=== PATIENT | male | born 1950 | race Asian ===

== ENCOUNTER 2018-01-06 02:35 | Emergency (ER) | payer MEDICARE, OTHER ==
[~2018-01-06] VITALS: Ht 172.7 cm; Wt 72.6 kg
[~2018-01-06 02:35] MED LIST: ASPIRIN EC81 MG PO; FINASTERIDE5 MG PO; NKM; TAMSULOSIN HCL0.4 MG PO
[2018-01-06 02:40] VITALS: BP 157/97
--- NOTE | 2018-01-06 02:50 | Emergency Room Report ---
History of Present Illness General Chief Complaint: Pain Source: Patient Present Illness HPI Patient presents by paramedics initial report is regarding left toe pain Patient reports that the pain started last night denies any fevers or chills Denies any trauma Denies any ankle pain denies any knee pain Pain is 8 out of 10 worse with touch Allergies: Coded Allergies: No Known Allergies (Unverified , 02/12/13) Patient History Past Medical History: see triage record Pertinent Family History: none Reviewed Nursing Documentation: PMH: Agreed; PSxH: Agreed Nursing Documentation-PMH Hx Cardiac Problems: Yes Hx Hypertension: Yes Hx Cancer: No Hx Gastrointestinal Problems: Yes Hx Neurological Problems: No Review of Systems All Other Systems: negative except mentioned in HPI Physical Exam Vital Signs Date Time Temp Pulse Resp B/P (MAP) Pulse Ox O2 Delivery O2 Flow Rate FiO2 01/06/18 02:39 97.9 77 16 157/97 93 Room Air Sp02 EP Interpretation: reviewed, normal General Appearance: no apparent distress Head: normocephalic, atraumatic Eyes: bilateral eye PERRL, bilateral eye EOMI ENT: normal pharynx, no angioedema Neck: supple Respiratory: lungs clear Cardiovascular #1: regular rate, rhythm Gastrointestinal: non tender, soft Musculoskeletal: other - Left large toe shows evidence of erythema and swelling , appearance of previous trauma to the toenail Neurologic: alert, oriented x3, responsive Psychiatric: other - Patient appears to have some underlying evidence of paranoia Skin: other - As above Lymphatic: no adenopathy Medical Decision Making Diagnostic Impression: Primary Impression: Ingrowing nail Additional Impression: Ingrowing nail with infection ER Course Multiple differentials including but not limited to paronychia, gout, other infectious pathology entertained The exam and the findings otherwise are consistent with likely ingrown nail, there is also some erythema showing signs of early cellulitis patient initiated on IV antibiotics and will have home antibiotics I did contact [facility] they do have the patient's primary on file The patient also does recall his primary physician will call tomorrow for a same -day appointment with further podiatry follow-up Labs Test 01/06/18 03:03 White Blood Count 7.4 K/UL (4.8-10.8) Red Blood Count 5.37 M/UL (4.70-6.10) Hemoglobin 15.5 G/DL (14.2-18.0) Hematocrit 45.8 % (42.0-52.0) Mean Corpuscular Volume 85 FL (80-99) Mean Corpuscular Hemoglobin 28.8 PG (27.0-31.0) Mean Corpuscular Hemoglobin Concent 33.7 G/DL (32.0-36.0) Red Cell Distribution Width 12.6 % (11.6-14.8) Platelet Count 171 K/UL (150-450) Mean Platelet Volume 8.0 FL (6.5-10.1) Neutrophils (%) (Auto) 63.0 % (45.0-75.0) Lymphocytes (%) (Auto) 24.6 % (20.0-45.0) Monocytes (%) (Auto) 8.2 % (1.0-10.0) Eosinophils (%) (Auto) 2.9 % (0.0-3.0) Basophils (%) (Auto) 1.3 % (0.0-2.0) Urine Color Pale yellow Urine Appearance Clear Urine pH 5 (4.5-8.0) Urine Specific [place] 1.015 (1.005-1.035) Urine Protein 2+ (NEGATIVE) Urine Glucose (UA) Negative (NEGATIVE) Urine Ketones 1+ (NEGATIVE) Urine Blood 1+ (NEGATIVE) Urine Nitrite Negative (NEGATIVE) Urine Bilirubin Negative (NEGATIVE) Urine Urobilinogen Normal MG/DL (0.0-1.0) Urine Leukocyte Esterase Negative (NEGATIVE) Urine RBC 0-2 /HPF (0 - 0) Urine WBC 0 /HPF (0 - 0) Urine Squamous Epithelial Cells None /LPF (NONE/OCC) Urine Bacteria None /HPF (NONE) Sodium Level 140 MMOL/L (136-145) Potassium Level 3.6 MMOL/L (3.5-5.1) Chloride Level 101 MMOL/L (98-107) Carbon Dioxide Level 27 MMOL/L (21-32) Anion Gap 12 mmol/L (5-15) Blood Urea Nitrogen 32 mg/dL (7-18) Creatinine 1.4 MG/DL (0.55-1.30) Estimat Glomerular Filtration Rate 50.4 mL/min (>60) Glucose Level 88 MG/DL (74-106) Calcium Level 9.1 MG/DL (8.5-10.1) Total Bilirubin 0.8 MG/DL (0.2-1.0) Aspartate Amino Transf (AST/SGOT) 34 U/L (15-37) Alanine Aminotransferase (ALT/SGPT) 30 U/L (12-78) Alkaline Phosphatase 80 U/L (46-116) Total Protein 8.0 G/DL (6.4-8.2) Albumin 4.4 G/DL (3.4-5.0) Globulin 3.6 g/dL Albumin/Globulin Ratio 1.2 (1.0-2.7) Salicylates Level < 0.2 ug/mL (2.8-20) Urine Opiates Screen Negative (NEGATIVE) Acetaminophen Level < 2 MCG/ML (10-30) Urine Barbiturates Screen Negative (NEGATIVE) Phencyclidine (PCP) Screen Negative (NEGATIVE) Urine Amphetamines Screen Negative (NEGATIVE) Urine Benzodiazepines Screen Negative (NEGATIVE) Urine Cocaine Screen Negative (NEGATIVE) Urine Marijuana (THC) Screen Negative (NEGATIVE) Serum Alcohol < 3 mg/dL Last Vital Signs Date Time Temp Pulse Resp B/P (MAP) Pulse Ox O2 Delivery O2 Flow Rate FiO2 01/06/18 02:39 97.9 77 16 157/97 93 Room Air Status: improved Disposition: HOME, SELF-CARE Condition: Improved Scripts Ibuprofen* (MOTRIN*) 600 Mg Tablet 600 MG ORAL Q8H PRN for For Pain, #20 TAB 0 Refills Prov: Bipin Harris DO 01/06/18 Cephalexin* (KEFLEX*) 500 Mg Capsule 500 MG ORAL EVERY 6 HOURS for 7 Days, CAP Prov: Bipin Harris DO 01/06/18 Additional Instructions: Patient is provided with the discharge instructions notified to follow up with primary doctor in the next 2-3 days otherwise return to the er with any worsening symptoms. Please note that this report is being documented using [employer] technology. This can lead to erroneous entry secondary to incorrect interpretation by the dictating instrument. Bipin Harris DO Jan 06, 2018 02:50
[2018-01-06] MEDS ORDERED: cefTRIAXone 1 GM in NS 55 ML IVPB ONE (03:00)
[2018-01-06 03:11] LABS: BASOPHILS % (AUTO) 1.3 % (0.0-2.0); EOSINOPHILS % (AUTO) 2.9 % (0.0-3.0); HEMATOCRIT 45.8 % (42.0-52.0); HEMOGLOBIN 15.5 G/DL (14.2-18.0); LYMPHOCYTES % (AUTO) 24.6 % (20.0-45.0); MEAN CORPUSCULAR VOLUME 85 FL (80-99); MONOCYTES % (AUTO) 8.2 % (1.0-10.0); PLATELET COUNT 171 K/UL (150-450); RED BLOOD COUNT 5.37 M/UL (4.70-6.10); RED CELL DISTRIBUTION WIDTH 12.6 % (11.6-14.8); WHITE BLOOD COUNT 7.4 K/UL (4.8-10.8)
[2018-01-06 03:14] LABS: APPEARANCE,URINE CLEAR; BILIRUBIN, URINE NEGATIVE (NEGATIVE); COLOR,URINE PALE YELLOW; GLUCOSE, URINE (UA) NEGATIVE (NEGATIVE); KETONES,URINE 1+ (NEGATIVE); LEUKOCYTE ESTERASE ,URINE NEGATIVE (NEGATIVE); NITRITE,URINE NEGATIVE (NEGATIVE); PH,URINE 5 (4.5-8.0); PROTEIN,URINE 2+ (NEGATIVE); UROBILINOGEN,URINE NORMAL MG/DL (0.0-1.0)
[2018-01-06 03:30] LABS: ANION GAP 12 mmol/L (5-15); BLOOD UREA NITROGEN 32 mg/dL (7-18); CALCIUM 9.1 MG/DL (8.5-10.1); CARBON DIOXIDE 27 MMOL/L (21-32); CHLORIDE 101 MMOL/L (98-107); CREATININE 1.4 MG/DL (0.55-1.30); POTASSIUM 3.6 MMOL/L (3.5-5.1); SODIUM 140 MMOL/L (136-145)
[2018-01-06 03:35] LABS: ALANINE AMINOTRANSFERASE 30 U/L (12-78); ALBUMIN 4.4 G/DL (3.4-5.0); ALBUMIN/GLOBULIN RATIO 1.2 (1.0-2.7); ALKALINE PHOSPHATASE 80 U/L (46-116); ASPARTATE AMINO TRANSFERASE 34 U/L (15-37); BILIRUBIN,TOTAL 0.8 MG/DL (0.2-1.0)
[2018-01-06] MEDS ORDERED: CEPHALEXIN500 MG ORAL (04:14)
[2018-01-06] MEDS ORDERED: IBUPROFEN600 MG ORAL (04:14)
[2018-01-06 04:18] VITALS: BP_SYST 138; BP_SYST 157; BP_DIAS 95; BP_DIAS 97
== END 2018-01-06 04:19 | disposition home or self-care (01) ==
LOC: EDUNIT# 02:35 → EDBD 02:35 → EMR 02:55
DX: L60.0 Ingrowing nail (principal); I10 Essential (primary) hypertension
CPT/HCPCS: 36415; 80053; 80307; 81003; 85025; 96365; 99284; G0480; J0696; 80329

== ENCOUNTER → 2019-02-15 | Emergency (ER) | payer MEDICARE ==
[~2019-02-15] VITALS: Ht 172.7 cm; Wt 77.1 kg
[~2019-02-15] MED LIST changes: +CEPHALEXIN500 MG ORAL; +HYDROCODON-ACE1 EA15 ORAL; +IBUPROFEN600 MG ORAL; +LACTULOSE20 GM/301 ORAL; +Morphine Sulfate 4mg/ml Inj (IV USE ONLY) IVP ONE; +TYLENOL325 MG ORAL
--- NOTE | 2019-02-15 05:54 | NUR ---
ED Nurse Note: Pt brought in by ambulance from home c/o 6/10 pain in L side, pt denies N/V, VSS. Pt is A&Ox4.
[2019-02-15 06:26] VITALS: BP 156/94
[2019-02-15 06:38] LABS: BASOPHILS % (AUTO) 1.6 % (0.0-2.0); EOSINOPHILS % (AUTO) 4.8 % (0.0-3.0); HEMATOCRIT 42.7 % (42.0-52.0); HEMOGLOBIN 13.8 G/DL (14.2-18.0); LYMPHOCYTES % (AUTO) 19.7 % (20.0-45.0); MEAN CORPUSCULAR VOLUME 86 FL (80-99); NEUTROPHILS % (AUTO) 65.8 % (45.0-75.0); PLATELET COUNT 161 K/UL (150-450); RED BLOOD COUNT 4.96 M/UL (4.70-6.10); RED CELL DISTRIBUTION WIDTH 13.3 % (11.6-14.8); WHITE BLOOD COUNT 5.5 K/UL (4.8-10.8)
[2019-02-15 06:50] LABS: ANION GAP 4 mmol/L (5-15); BLOOD UREA NITROGEN 26 mg/dL (7-18); CALCIUM 8.6 MG/DL (8.5-10.1); CARBON DIOXIDE 32 MMOL/L (21-32); CHLORIDE 107 MMOL/L (98-107); CREATININE 1.2 MG/DL (0.55-1.30); POTASSIUM 4.5 MMOL/L (3.5-5.1); SODIUM 143 MMOL/L (136-145)
[2019-02-15 06:54] LABS: ALANINE AMINOTRANSFERASE 25 U/L (12-78); ALBUMIN 3.9 G/DL (3.4-5.0); ALBUMIN/GLOBULIN RATIO 1.1 (1.0-2.7); ALKALINE PHOSPHATASE 84 U/L (46-116); ASPARTATE AMINO TRANSFERASE 23 U/L (15-37); BILIRUBIN,TOTAL 0.5 MG/DL (0.2-1.0)
--- NOTE | 2019-02-15 06:54 | Emergency Room Report ---
History of Present Illness General Chief Complaint: Lower Back Pain or Injury Source: Patient (Vic Mayes MD) Present Illness HPI Patient is a 68-year-old male presents after increased left-sided flank pain. Reports having acute onset of symptoms. Pain is worse with movement. He denies any fever. He reports having a prior history of hypertension but denies other medical conditions. He denies any current prostate issues but has previously been diagnosed with prostate hypertrophy. Reports having prior surgical management.He denies any fever or difficulty with urination. Denies any vomiting. Pain was severe (Vic Mayes MD) Allergies: Coded Allergies: No Known Allergies (Unverified , 02/12/13) Patient History Past Medical History: see triage record Reviewed Nursing Documentation: PMH: Agreed; PSxH: Agreed (Vic Mayes MD) Nursing Documentation-PMH Past Medical History: No Stated History Hx Cardiac Problems: Yes Hx Hypertension: Yes Hx Cancer: No Hx Gastrointestinal Problems: Yes Hx Neurological Problems: No (Vic Mayes MD) Review of Systems All Other Systems: negative except mentioned in HPI (Vic Mayes MD) Physical Exam Vital Signs Date Time Temp Pulse Resp B/P (MAP) Pulse Ox O2 Delivery O2 Flow Rate FiO2 02/15/19 05:44 98.6 69 26 156/94 (114) 96 Room Air Sp02 EP Interpretation: reviewed, normal General Appearance: normal inspection, well appearing, no apparent distress, alert, GCS 15 Head: atraumatic ENT: normal ENT inspection, hearing grossly normal, normal voice Neck: normal inspection, full range of motion, supple, no bony tend Respiratory: normal inspection, lungs clear, normal breath sounds, no respiratory distress, no retraction, no wheezing Cardiovascular #1: regular rate, rhythm, no edema Gastrointestinal: normal inspection, normal bowel sounds, non tender, soft, no guarding, no hernia Genitourinary: CVA tenderness (L) Musculoskeletal: normal inspection, back normal, normal range of motion Neurologic: alert, motor strength/tone normal, renewable energy consultant III-XII nml as tested, EOM palsy, oriented x3, responsive, speech normal, normal inspection Psychiatric: normal inspection, judgement/insight normal, mood/affect normal (Vic Mayes MD) Medical Decision Making Diagnostic Impression: Primary Impression: Flank pain Additional Impressions: Constipation Qualified Codes: K59.00 - Constipation, unspecified Renal calculi ER Course Patient presented for left-sided flank pain. Differential diagnosis included was not limited to pneumonia, renal stone, rib fracture, pulmonary embolism, ulcer, enteritis, pyelonephritis among others. Because of complexity of patient 's case laboratory tests and imaging studies were ordered.Laboratory testing showed initially normal white blood count. Patient was endorsed to Dr. Cordova pending results of CT imaging. Anticipate the patient will be discharged home. Labs Test 02/15/19 06:30 02/15/19 07:14 White Blood Count 5.5 K/UL (4.8-10.8) Red Blood Count 4.96 M/UL (4.70-6.10) Hemoglobin 13.8 G/DL (14.2-18.0) Hematocrit 42.7 % (42.0-52.0) Mean Corpuscular Volume 86 FL (80-99) Mean Corpuscular Hemoglobin 27.9 PG (27.0-31.0) Mean Corpuscular Hemoglobin Concent 32.4 G/DL (32.0-36.0) Red Cell Distribution Width 13.3 % (11.6-14.8) Platelet Count 161 K/UL (150-450) Mean Platelet Volume 6.8 FL (6.5-10.1) Neutrophils (%) (Auto) 65.8 % (45.0-75.0) Lymphocytes (%) (Auto) 19.7 % (20.0-45.0) Monocytes (%) (Auto) 8.0 % (1.0-10.0) Eosinophils (%) (Auto) 4.8 % (0.0-3.0) Basophils (%) (Auto) 1.6 % (0.0-2.0) Prothrombin Time 10.7 SEC (9.30-11.50) Prothromb Time International Ratio 1.0 (0.9-1.1) Activated Partial Thromboplast Time 29 SEC (23-33) Sodium Level 143 MMOL/L (136-145) Potassium Level 4.5 MMOL/L (3.5-5.1) Chloride Level 107 MMOL/L (98-107) Carbon Dioxide Level 32 MMOL/L (21-32) Anion Gap 4 mmol/L (5-15) Blood Urea Nitrogen 26 mg/dL (7-18) Creatinine 1.2 MG/DL (0.55-1.30) Estimat Glomerular Filtration Rate > 60 mL/min (>60) Glucose Level 107 MG/DL (74-106) Calcium Level 8.6 MG/DL (8.5-10.1) Total Bilirubin 0.5 MG/DL (0.2-1.0) Aspartate Amino Transf (AST/SGOT) 23 U/L (15-37) Alanine Aminotransferase (ALT/SGPT) 25 U/L (12-78) Alkaline Phosphatase 84 U/L (46-116) Total Protein 7.4 G/DL (6.4-8.2) Albumin 3.9 G/DL (3.4-5.0) Globulin 3.5 g/dL Albumin/Globulin Ratio 1.1 (1.0-2.7) Lipase 162 U/L (73-393) Urine Color Pale yellow Urine Appearance Clear Urine pH 7 (4.5-8.0) Urine Specific [place] 1.005 (1.005-1.035) Urine Protein Negative (NEGATIVE) Urine Glucose (UA) Negative (NEGATIVE) Urine Ketones Negative (NEGATIVE) Urine Blood Negative (NEGATIVE) Urine Nitrite Negative (NEGATIVE) Urine Bilirubin Negative (NEGATIVE) Urine Urobilinogen Normal MG/DL (0.0-1.0) Urine Leukocyte Esterase Negative (NEGATIVE) (Vic Mayes MD) ER Course Please see above note. Patient pain is resolved at this time. Labs unremarkable except for elevated BUN. CT with multiple unrelated findings aside from increased stool. Discussed results with patient. Patient stable for outpatient observation and treatment. Laboratory Tests Test 02/15/19 06:30 02/15/19 07:14 White Blood Count 5.5 K/UL (4.8-10.8) Red Blood Count 4.96 M/UL (4.70-6.10) Hemoglobin 13.8 G/DL (14.2-18.0) L Hematocrit 42.7 % (42.0-52.0) Mean Corpuscular Volume 86 FL (80-99) Mean Corpuscular Hemoglobin 27.9 PG (27.0-31.0) Mean Corpuscular Hemoglobin Concent 32.4 G/DL (32.0-36.0) Red Cell Distribution Width 13.3 % (11.6-14.8) Platelet Count 161 K/UL (150-450) Mean Platelet Volume 6.8 FL (6.5-10.1) Neutrophils (%) (Auto) 65.8 % (45.0-75.0) Lymphocytes (%) (Auto) 19.7 % (20.0-45.0) L Monocytes (%) (Auto) 8.0 % (1.0-10.0) Eosinophils (%) (Auto) 4.8 % (0.0-3.0) H Basophils (%) (Auto) 1.6 % (0.0-2.0) Prothrombin Time 10.7 SEC (9.30-11.50) Prothrombin Time INR 1.0 (0.9-1.1) PTT 29 SEC (23-33) Sodium Level 143 MMOL/L (136-145) Potassium Level 4.5 MMOL/L (3.5-5.1) Chloride Level 107 MMOL/L (98-107) Carbon Dioxide Level 32 MMOL/L (21-32) Anion Gap 4 mmol/L (5-15) L Blood Urea Nitrogen 26 mg/dL (7-18) H Creatinine 1.2 MG/DL (0.55-1.30) Estimate Glomerular Filtration Rate > 60 mL/min (>60) Glucose Level 107 MG/DL (74-106) H Calcium Level 8.6 MG/DL (8.5-10.1) Total Bilirubin 0.5 MG/DL (0.2-1.0) Aspartate Amino Transferase (AST) 23 U/L (15-37) Alanine Aminotransferase (ALT) 25 U/L (12-78) Alkaline Phosphatase 84 U/L (46-116) Total Protein 7.4 G/DL (6.4-8.2) Albumin 3.9 G/DL (3.4-5.0) Globulin 3.5 g/dL Albumin/Globulin Ratio 1.1 (1.0-2.7) Lipase 162 U/L (73-393) Urine Color Pale yellow Urine Appearance Clear Urine pH 7 (4.5-8.0) Urine Specific [place] 1.005 (1.005-1.035) Urine Protein Negative (NEGATIVE) Urine Glucose (UA) Negative (NEGATIVE) Urine Ketones Negative (NEGATIVE) Urine Blood Negative (NEGATIVE) Urine Nitrite Negative (NEGATIVE) Urine Bilirubin Negative (NEGATIVE) Urine Urobilinogen Normal MG/DL (0.0-1.0) Urine Leukocyte Esterase Negative (NEGATIVE) (Isacc Cordova MD) CT/MRI/US Diagnostic Results CT/MRI/US Diagnostic Results : Imaging Test Ordered: abd pelvis Impression No radiopaque gallstones. No acute pancreatitis. Punctate calcifications likely related to chronic pancreatitis. Punctate nonobstructive left renal stone. No hydronephrosis. No ureteral or bladder stones. The appendix is not definitively seen. No pericecal inflammatory changes. Diverticulosis without evidence of diverticulitis. Increased fecal burden, correlate with history of constipation. No small bowel obstruction. No free air or fluid collections. Normal caliber abdominal aorta. Postoperative changes in prostate. Sclerotic and arthritic changes in the symphysis pubis, new since prior exam and may be related to infection or radiation. Left greater than right inguinal and iliac chain adenopathy, indeterminate. Recommend followup. Small hiatal hernia. (Isacc Cordova MD) Last Vital Signs Date Time Temp Pulse Resp B/P (MAP) Pulse Ox O2 Delivery O2 Flow Rate FiO2 02/15/19 06:26 98.6 26 156/94 96 Room Air 02/15/19 05:44 69 Status: improved (Vic Mayes MD) Last Vital Signs Date Time Temp Pulse Resp B/P (MAP) Pulse Ox O2 Delivery O2 Flow Rate FiO2 02/15/19 08:54 98.3 79 16 149/91 99 Room Air Status: improved (Isacc Cordova MD) Disposition: HOME, SELF-CARE Condition: Improved Vic Mayes MD Feb 15, 2019 06:54 Isacc Cordova MD Feb 15, 2019 08:36
[2019-02-15 07:23] LABS: BILIRUBIN, URINE NEGATIVE (NEGATIVE); COLOR,URINE PALE YELLOW; GLUCOSE, URINE (UA) NEGATIVE (NEGATIVE); KETONES,URINE NEGATIVE (NEGATIVE); LEUKOCYTE ESTERASE ,URINE NEGATIVE (NEGATIVE); NITRITE,URINE NEGATIVE (NEGATIVE); PH,URINE 7 (4.5-8.0); PROTEIN,URINE NEGATIVE (NEGATIVE); UROBILINOGEN,URINE NORMAL MG/DL (0.0-1.0)
[2019-02-15 07:32] LABS: APPEARANCE,URINE CLEAR
--- NOTE | 2019-02-15 07:49 | Diagnostic Imaging Report ---
Indication: Increased left-sided flank pain Technique: Spiral acquisitions obtained through the abdomen and pelvis. No oral contrast utilized, per emergency room physician request No IV contrast utilized, per referring physician request.. Multiplanar reconstructions were generated. Total dose length product 1311 mGycm. CTDIvol(s) 24 mGy. Dose reduction achieved using automated exposure control Comparison: 12/18/2013 Findings: There is a calculus seen in a left lower pole calyx, also demonstrated previously, more conspicuous currently. No ureteral calculi demonstrated on a side. No hydronephrosis nor hydroureter demonstrated. No right renal calculi. Previously demonstrated bilateral hydronephrosis and hydroureter are no longer evident. The bladder is much less distended than on the prior exam. A TURP defect is demonstrated. No bladder calculi. No significant bladder wall thickening. Lack of IV contrast limits assessment of the renal parenchyma. No gross renal masses or cyst demonstrated. The appendix is not definitely visualized, but no findings to suggest acute appendicitis are evident. The colon is stool-filled. No evidence of colonic diverticulosis or diverticulitis. No small bowel distention. No free or loculated intraperitoneal gas or fluid is evident. The distal esophagus demonstrates a small hiatal hernia and mild wall thickening. This is unchanged from the previous study. The stomach is otherwise unremarkable. The duodenum is unremarkable. Lack of IV contrast limits assessment of the other solid organs. The liver, gallbladder, bile ducts, spleen, adrenals are unremarkable. The pancreas demonstrates a single punctate calcification within the head Somewhat prominent iliac chain and retroperitoneal lymph nodes are noted. The bones demonstrate sclerotic changes of the bilateral medial pubic bones. The included lung bases demonstrate atelectasis or scarring on the left. Impression: Nonobstructive left lower pole intrarenal calyceal calculus. No evidence of ureteral calculi or obstructive uropathy. Previously demonstrated bladder distention and hydronephrosis are no longer evident Stool-filled colon, could indicate constipation. Correlate with clinical findings Evidence of prior TURP Sclerosis of the pubic symphyseal region, new since prior study. Of uncertain significance/etiology. Could indicate prior radiation, among other possibilities Prominent but not frankly enlarged iliac chain and retroperitoneal nodes left basilar atelectasis and/or scarring This agrees with the preliminary interpretation provided overnight by [employer] teleradiology service. The CT scanner at [facility] is accredited by the [employer] and the scans are performed using protocols designed to limit radiation exposure to as low as reasonably achievable to attain images of sufficient resolution adequate for diagnostic evaluation.
[2019-02-15 08:24] VITALS: BP 159/88
[2019-02-15 08:54] VITALS: BP 149/91
--- NOTE | 2019-02-15 08:54 | NUR ---
ER DISCHARGE NOTE: Patient is cleared to be discharged per ERMD, pt is aox4, on room air, with stable vital signs. pt was given dc and prescription instructions, pt was able to verbalize understanding, pt id band and iv site removed without complications. pt is able to ambulate with steady gait. pt took all belongings.
== END | disposition home or self-care (01) ==
LOC: EDUNIT# 05:44 → EDBD 05:48 → EMR 06:20
DX: R10.32 Left lower quadrant pain (principal); K59.00 Constipation, unspecified; I10 Essential (primary) hypertension
CPT/HCPCS: 36415; 74176; 80053; 81003; 83690; 85025; 85610; 85730; 96374; 99284; J2270

== ENCOUNTER 2019-02-16 21:59 | Emergency (ER) | payer MEDICARE ==
[~2019-02-16] VITALS: Ht 177.8 cm; Wt 81.6 kg
[~2019-02-16 21:59] MED LIST changes: -HYDROCODON-ACE1 EA15 ORAL; -Morphine Sulfate 4mg/ml Inj (IV USE ONLY) IVP ONE
[2019-02-16 22:07] VITALS: BP 160/100
--- NOTE | 2019-02-16 22:07 | NUR ---
ED Nurse Note: Patient brought in by RA from home c/o right side back pain x4 hrs. Denies any fall or injury. Stated he was having chills this morning. Pt was seen at the ER due to the same complaint. Alert and orientedx4, verbally responsive. No SOB. Afebrile. VSS.
--- NOTE | 2019-02-16 22:10 | NUR ---
ED Nurse Note: ERMD at bedside.
--- NOTE | 2019-02-16 22:11 | Emergency Room Report ---
History of Present Illness General Chief Complaint: Back Pain-No Injury Source: Patient, Medical Record, EMS Present Illness HPI This is a 68-year-old male with a history of prostate problems status post TURP procedure. Also history of high blood pressure and cardiac problem. He presents with chief complaint of left flank pain. Onset for last 4 hours. Pain is to the left flank. No radiation. Worse with movement. Worse with palpation. He was here yesterday for same complaint. CT scan show chronic changes. Also left nonobstructive punctate kidney stone. Urinalysis was negative. Patient was given pain medication discharge home. He was doing better until today. Pain is sharp. 9 out of 10. Rest made it better. Movement made it worse. No fever chills. No nausea no vomiting. No hematuria. Allergies: Coded Allergies: No Known Allergies (Unverified , 02/12/13) Patient History Past Medical History: see triage record, old chart reviewed, HTN, CAD Past Surgical History: other Pertinent Family History: none Social History: Denies: smoking Immunizations: other Reviewed Nursing Documentation: PMH: Agreed; PSxH: Agreed Nursing Documentation-PMH Past Medical History: No History, Except For Hx Cardiac Problems: Yes Hx Hypertension: Yes Hx Cancer: No Hx Gastrointestinal Problems: Yes Hx Neurological Problems: No Review of Systems Eye: Denies: eye pain, blurred vision ENT: Denies: ear pain, nose congestion, throat swelling Respiratory: Denies: cough, shortness of breath Cardiovascular: Denies: chest pain, palpitations Gastrointestinal: Denies: abdominal pain, diarrhea, nausea, vomiting Musculoskeletal: Reports: back pain; Denies: joint pain Skin: Denies: rash Neurological: Denies: headache, numbness Endocrine: Denies: increased thirst, increased urine Hematologic/Lymphatic: Denies: easy bruising All Other Systems: negative except mentioned in HPI Physical Exam Vital Signs Date Time Temp Pulse Resp B/P (MAP) Pulse Ox O2 Delivery O2 Flow Rate FiO2 02/16/19 22:02 98.8 92 14 160/100 (120) 97 Room Air Vitals with high blood pressure Sp02 EP Interpretation: reviewed, normal General Appearance: well appearing, no apparent distress, alert Head: normocephalic, atraumatic Eyes: bilateral eye PERRL, bilateral eye EOMI ENT: hearing grossly normal, normal pharynx Neck: full range of motion, supple, no meningismus Respiratory: chest non-tender, lungs clear, normal breath sounds Cardiovascular #1: regular rate, rhythm, no murmur Gastrointestinal: normal bowel sounds, non tender, no mass, no organomegaly, no bruit, non-distended Musculoskeletal: back normal - Tenderness to the left flank with palpation., normal range of motion, gait/station normal Psychiatric: mood/affect normal Medical Decision Making Diagnostic Impression: Primary Impression: Back pain Qualified Codes: M54.5 - Low back pain Additional Impression: Flank pain ER Course Patient with back pain. CT scan from yesterday was unremarkable other than for constipation. No evidence of infection. Most likely radicular pain. No evidence of zoster's. Will discharge home. Last Vital Signs Date Time Temp Pulse Resp B/P (MAP) Pulse Ox O2 Delivery O2 Flow Rate FiO2 02/16/19 22:02 98.8 92 14 160/100 (120) 97 Room Air Status: improved Disposition: HOME, SELF-CARE Condition: Stable Scripts Ibuprofen* (MOTRIN*) 600 Mg Tablet 600 MG ORAL THREE TIMES A DAY, #30 TAB 0 Refills Prov: Fran Samuels MD 02/16/19 Hydrocodone/Acetaminophen 5-325* (HYDROCODONE/ACETAMINOPHEN 5-325*) 1 Each Tablet 1 TAB ORAL Q6H PRN for For Pain, #10 TAB 0 Refills Prov: Fran Samuels MD 02/16/19 Patient Instructions: Back Pain, Adult Additional Instructions: Follow-up with your doctor in 7 days. Return if symptoms worsen. Fran Samuels MD Feb 16, 2019 22:11
[2019-02-16] MEDS ORDERED: Ketorolac 60mg Inj IM ONE (22:15)
--- NOTE | 2019-02-16 22:35 | NUR ---
ED Nurse Note: Urine collected and sent to lab.
[2019-02-16 22:46] LABS: APPEARANCE,URINE CLEAR; BILIRUBIN, URINE NEGATIVE (NEGATIVE); COLOR,URINE PALE YELLOW; GLUCOSE, URINE (UA) NEGATIVE (NEGATIVE); KETONES,URINE NEGATIVE (NEGATIVE); LEUKOCYTE ESTERASE ,URINE 2+ (NEGATIVE); NITRITE,URINE NEGATIVE (NEGATIVE); PH,URINE 6 (4.5-8.0); PROTEIN,URINE NEGATIVE (NEGATIVE); UROBILINOGEN,URINE NORMAL MG/DL (0.0-1.0)
[2019-02-16] MEDS ORDERED: IBUPROFEN600 MG ORAL (23:25)
[2019-02-16] MEDS ORDERED: HYDROCODON-ACE1 EA15 ORAL (23:25)
--- NOTE | 2019-02-17 | NUR ---
Note christopher in EDM - 02/17/19 at 0007 by BRITTANY ER DISCHARGE NOTE: Patient is cleared to be discharged per ERMD stable vital signs. accompanied by parent. parent was given dc and prescription instructions, parent was able to verbalize understanding, pt id band removed. pt left ed with parent with all belongigns.
[2019-02-17 00:55] VITALS: BP 173/98
--- NOTE | 2019-02-17 00:55 | NUR ---
ED Nurse Note: Pt cleared by ERMD for discharge. DC instructions/prescription was given and explained to pt and verbalized understanding of teachings. All medical deviecs such as ID band removed. Pt is AAO x4, ambulatory and left with all personal belongings. Pt was picked by 2 EMT via manav.
== END 2019-02-17 00:55 | disposition home or self-care (01) ==
LOC: EDBD 21:59 → EMR 23:32
DX: M54.5 Low back pain (principal); R10.9 Unspecified abdominal pain; I10 Essential (primary) hypertension; I11.9 Hypertensive heart disease without heart failure
CPT/HCPCS: 81003; 96372; 99283